=== PATIENT | female | born 1990 ===

== ENCOUNTER 2024-07-01 07:45 | Emergency (ER) | payer OTHER, SELFPAY ==
[2024-07-01 07:55] VITALS: BP 117/89; PULSE 89; RESP 16; TEMP 36.4; O2SAT 100; BMI 22.1
--- NOTE | 2024-07-01 09:38 | ED_ITS ---
HPI - Extremity Problem General Chief complaint: Extremity Problem Stated complaint: swollen legs Time Seen by Provider: 07/01/24 09:21 Source: patient Mode of arrival: ambulatory Limitations: no limitations History of Present Illness ED Provider: ASHELY QUINN PA-C HPI Narrative: 33 year old female with pmhx significant for paranoia, panic disorder and asthma presents to the ED today for evaluation of right leg pain/ swelling x months. She is currently experiencing homelessness. On my evaluation, she is not forthcoming with answers. She tells me she is currently sleeping on the street. She has not been taking anything for her RLE pain. Denies known injury or trauma. States it's my entire leg and cannot decipher where the pain originates. Denies any back pain, palpitations, chest pain or SOB, orthopnea. No recent travel/ long car rides. No OCP use. Denies IVDU. She states she is agreeable to blood work today however would like to be left alone and provided with a list of homeless shelters. Denies HI/SI. Denies AH/VH/TH. Denies etoh consumption. Denies ilicit substance use. Related Data Allergies Allergy/AdvReac Type Severity Reaction Status Date / Time No Known Allergies Allergy Verified 07/01/24 08:01 Review of Systems 2 Review of Systems: Constitutional: No fever, chills, fatigue, night sweats, weight changes ENT/Mouth: No ear pain, hearing loss, nasal congestion, sinus pain, rhinorrhea, sore throat Eyes: No eye pain, swelling, redness, vision changes, discharge Cardio: No chest pain, palpitations, GRACIA, orthopnea, peripheral edema Pulm: No SOB, cough, sputum, wheezing, dyspnea, hemoptysis GI: No nausea, vomiting, hematemesis, abdominal pain, diarrhea, constipation, hematochezia, melena : No irregular bleeding, dysuria, frequency, urgency, hesitancy, hematuria, flank pain, urinary flow changes, urinary incontinence or retention MSK: No back pain, neck pain, joint pain, myalgias, +RLE pain Skin: No lesions, rashes Neuro: No weakness, numbness, paresthesias, LOC, dizziness, headache Psych: No anxiety/panic, depression, SI/HI, AH/VH All other systems reviewed and are negative. [facility] Past Medical History Attestation statement: The following information was validated with the patient. Source: old records reviewed and nursing notes reviewed Social History Social History Smoked in Last 30 Days: No Use of substances other than those prescribed or required for medical reasons: No Advance Directives: No Advance Directives Information Provided: No Patient : No Physical Exam 2 Vital Signs: Vital Signs: Last Vital Signs Temp 0 F L 07/01/24 13:06 Pulse 0 L 07/01/24 13:06 Resp 0 L 07/01/24 13:06 BP 0/0 L 07/01/24 13:06 Pulse Ox 0 L 07/01/24 13:06 O2 Del Method Room Air 07/01/24 12:04 BMI result Body Mass Index 22.1 vital signs stable. afebrile, not tachycardic, not hypoxic General: unkempt Skin: Warm, dry, intact. No rashes or lesions. Head: Normocephalic, atraumatic. EENT: Hearing is intact b/l. Conjunctiva clear. PERRLA. EOM intact. Moist mucous membranes.? Neck: Supple without LAD Cardiac: Chest wall symmetric. RRR Lungs: Normal respiratory effort without accessory muscle use. CTA bilaterally. Back: No midline spinous or paraspinal tenderness. No step off deformity. negative straight leg raise b/l. Ext: Upper and lower extremities atraumatic, without tenderness, deformity, swelling or erythema. Full ROM throughout. no pitting or peripheral edema. no calf tenderness b/l. Capillary refill <2 seconds in all extremities. Pulses 2+ equal and bilateral. Neuro: AOx3. Normal speech. Strength 5/5 intact throughout. No saddle anesthesia. Sensation intact to light touch. NV intact distally. Ambulating with steady gait. Psych: Appropriate mood and affect. Responds appropriately to questions. Course Course Course Narrative: 1151 -- cbc without leukocytosis or left shift. normocytic anemia, h&h stable and above transfusion threshold. chemistry without acute electrolyte abnormality requiring intervention. no JOY. liver function wnl. bnp wnl - CHF unlikely. CPK WNL. Unlikely rhabdomyolysis. > US tech at bedside to complete venous duplex RLE to r/o DVT (although my suspicion is low). Patient adamantly declining US. states she will not take her pants off and does not beleive US is necessary. declining any imaging modalities at this time. > given unremarkable work up, will send patient home with tylenol/ motrin for pain control. there is no appreciable swelling to LEs that would warrant compression stockings. I spoke with malena from case management and we were able to provide her with a list of homeless shelters/ resources that she is able to contact on her own time. she verbalizes understanding. Patient has remained stable throughout ED visit today. Discussed worrisome signs and symptoms and when to return to the ED. All questions answered at this time. Patient is agreeable with disposition and stable for discharge. Medications Administered Discontinued Medications Generic Name Dose Route Start Last Admin Trade Name Freq PRN Reason Stop Dose Admin Acetaminophen 975 mg 07/01/24 10:03 07/01/24 10:30 Acetaminophen 325 Mg Tablet PO 07/01/24 10:04 975 mg ONCE ONE Administration Medical Decision Making Medical Decision Making [facility] Narrative: 33 year old female with pmhx significant for paranoia, panic disorder and asthma presents to the ED today for evaluation of right leg pain/ swelling x months. Vital signs stable, afebrile, not hypoxic or tachycardic. She is disheveled appearing. On exam, Upper and lower extremities atraumatic, without tenderness, deformity, swelling or erythema. Full ROM throughout. no pitting or peripheral edema. no calf tenderness b/l. Capillary refill <2 seconds in all extremities. Pulses 2+ equal and bilateral. No midline spinous or paraspinal tenderness. No step off deformity. negative straight leg raise b/l. Differential diagnosis includes sciatica, leg contusion, tendonitis, bursitis, dependent edema, rhabdomyolysis. Lower suspicion for CHF, DVT, bakers cyst. Unlikely NV compromise, compartment syndrome, threat to limb. Plan for basic labs, pain control, re-evaluation. Differential Diagnosis Differential Diagnoses: The differential diagnosis associated with the presentation includes as above. Admission/Observation not indicated. Lab Data [facility] Lab Attestation statement: I reviewed the patient's lab results. as above. 07/01/24 09:55 07/01/24 09:55 Labs: Lab Results 07/01/24 Range/Units 09:55 WBC 6.9 (4.8-10.8) X10*3/uL RBC 3.99 L (4.20-5.50) X10*6/uL Hgb 11.5 L (12.0-16.0) g/dl Hct 34.3 L (37.0-47.0) % MCV 86.0 (80.0-98.0) fL MCH 28.8 (27.0-33.0) pg MCHC 33.5 (31.0-35.0) g/dl RDW 14.8 (11.0-16.0) % Plt Count 227 (160-400) X10*3/uL MPV 11.3 (9.4-12.3) fL Immature Gran % (Auto) 0.3 (0.0-0.4) % Neut % (Auto) 68.0 (45-73) % Lymph % (Auto) 22.9 (20-40) % Cataño % (Auto) 7.2 (2-11) % Eos % (Auto) 1.2 (0-4) % Baso % (Auto) 0.4 (0-2) % Lymph # (Auto) 1.6 (1.2-4.9) X10*3/uL Cataño # (Auto) 0.5 (0.1-1.2) X10*3/uL Eos # (Auto) 0.1 (0.0-0.4) X10*3/uL Baso # (Auto) 0.0 (0.0-0.2) X10*3/uL Abs Immat Gran (auto) 0.02 (0.00-0.03) X10*3/uL Absolute Neuts (auto) 4.7 (2.0-8.3) x10*3/uL Absolute Nucleated RBC 0.000 (0.0-0.012) X10*3/uL Nucleated RBC % (auto) 0.0 (0.0-0.2) /100WBC PT 11.6 (10.9-12.4) SEC INR 1.0 (0.9-1.1) APTT 30.8 (26.0-36.8) SEC Sodium 144 (135-145) mmol/L Potassium 3.5 (3.3-5.1) mmol/L Chloride 109 H (96-108) mmol/L Carbon Dioxide 28 (22-29) mmol/L Anion Gap 11 L (12-20) BUN 8 L (9-16) mg/dL Creatinine 0.63 (0.5-1.4) mg/dL Estim Creat Clear Calc 131.5 Estimated GFR > 60 Random Glucose 85 (60-115) mg/dL Calcium 8.8 (8.4-10.2) mg/dL Total Bilirubin 0.7 (0.0-1.0) mg/dL AST 36 H (5-31) U/L ALT 29 (0-31) U/L Alkaline Phosphatase 46 (39-117) U/L Total Creatine Kinase 74 (26-140) U/L B-Natriuretic Peptide 31 (<100) pg/mL Total Protein 7.0 (6.5-8.0) g/dL Albumin 3.9 (3.5-5.0) g/dL Prescription Management I considered prescription management with: Pain Medication Social Determinants Patient?s care significantly limited by Social Determinants of Health including: Inadequate housing and Other Social Determinant of Health Critical Care Time Critical Care Time Critical Care Time: No Discharge Plan Discharge Clinical Impression: Pain in right leg Patient Disposition: Home, Self-Care Instructions: Leg Pain (ED) Additional Instructions: Your blood work today is reassuring. You are declining any imaging of your right leg at this time. I advise tylenol/ motrin for pain/ discomfort. You were provided with a list of homeless shelters and out patient resources for you to contact. Please return to the ED with any new or worsening symptoms. In the case of an emergency call 911. Referrals: [facility] Family Medicine [Provider Group] [facility] [Provider Group] [facility] [Provider Group] Interventions: ED Discharge Assessment Last Done: 07/01/24 13:06 Discharge Date/Time: 07/01/24 13:06 Print Language: Choose Not To Answer
[2024-07-01 09:59] LABS: MANUAL DIFF FLAG NO
[2024-07-01 10:01] LABS: Basophils Percent Auto 0.4 % (0-2); Eosinophils Absolute Auto 0.1 X10*3/uL (0.0-0.4); Eosinophils Percent Auto 1.2 % (0-4); Hematocrit 34.3 % (37.0-47.0); Hemoglobin 11.5 g/dl (12.0-16.0); Imm Gran Abs Auto 0.02 X10*3/uL (0.00-0.03); Imm Gran Pct Auto 0.3 % (0.0-0.4); Lymphocytes Absolute Auto 1.6 X10*3/uL (1.2-4.9); Lymphocytes Percent Auto 22.9 % (20-40); Mean Corpuscular HGB Conc 33.5 g/dl (31.0-35.0); Mean Corpuscular Hemoglobin 28.8 pg (27.0-33.0); Mean Platelet Volume 11.3 fL (9.4-12.3); Monocytes Absolute Auto 0.5 X10*3/uL (0.1-1.2); Monocytes Percent Auto 7.2 % (2-11); Neutrophils Absolute Auto 4.7 x10*3/uL (2.0-8.3); Platelet Count 227 X10*3/uL (160-400); Red Blood Count 3.99 X10*6/uL (4.20-5.50); Red Cell Distribution Width 14.8 % (11.0-16.0); White Blood Count 6.9 X10*3/uL (4.8-10.8)
[2024-07-01 10:07] LABS: Prothrombin Time 11.6 SEC (10.9-12.4)
[2024-07-01 10:10] LABS: Partial Thromboplastin Time 30.8 SEC (26.0-36.8)
[2024-07-01 10:17] LABS: Alanine Aminotransferase 29 U/L (0-31); Albumin Level 3.9 g/dL (3.5-5.0); Alkaline Phosphatase 46 U/L (39-117); Anion Gap 11 (12-20); Aspartate Amino Transferase 36 U/L (5-31); Bilirubin Total 0.7 mg/dL (0.0-1.0); Blood Urea Nitrogen 8 mg/dL (9-16); Calcium 8.8 mg/dL (8.4-10.2); Carbon Dioxide 28 mmol/L (22-29); Chloride 109 mmol/L (96-108); Creatinine Clr Calc Pharmacy 131.5; Estimated Glomerular Filt Rate > 60; Glucose Random 85 mg/dL (60-115); Potassium 3.5 mmol/L (3.3-5.1); Sodium 144 mmol/L (135-145)
[2024-07-01 10:23] LABS: B Type Natriuretic Peptide 31 pg/mL (<100)
[2024-07-01] MEDS: Acetaminophen 325 MG TABLET 975 MG PO (10:30)
[2024-07-01 12:04] VITALS: BP 96/51; PULSE 98; RESP 16; TEMP 37.5; O2SAT 99
[2024-07-01 13:06] VITALS: BP 0/0; PULSE 0; RESP 0; TEMP -17.7; TEMP 0; O2SAT 0
== END 2024-07-01 13:06 | disposition home or self-care (01) ==
PROVIDERS: Physician Assistant Medical; Emergency Provider Emergency Medicine
DX: M79.604 Pain in right leg (principal); J45.909 Unspecified asthma, uncomplicated; Z59.00 Homelessness unspecified
CPT/HCPCS: 36415; 80053; 82550; 83880; 85025; 85610; 85730; 99283; 99284